=== PATIENT | female | born 1975 | race Caucasian/White ===

== ENCOUNTER → 2022-10-01 | Outpatient (CLI) | payer MEDICAID, SELFPAY ==
[2022-10-01 09:22] LABS: Absolute Neutrophil Count 2.7 X10^3/uL (2.0-7.7); Basophil# 0.03 X10^3/uL; Basophil% 0.7 % (0-1); Eosinophil# 0.21 X10^3/uL; Eosinophils% 4.7 % (0-5); Hematocrit 42.2 % (37-47); Hemoglobin 13.2 g/dL (12.0-15.0); Lymphocyte % 26.7 % (19-41); Mean Corp Hgb Conc 31.3 g/dL (32-36); Mean Corpuscular Hgb 28.3 pg (27.0-32.0); Mean Corpuscular Volume 90.6 fL (81-99); Mean Platelet Vol. 11.3 fl (6.2-12.0); Monocyte# 0.33 X10^3/uL; Monocyte% 7.3 % (0-10); NRBC Flagged by Analyzer 0 % (0-5); Neutrophil # 2.71 X10^3/uL (2.7-7.7); Neutrophil % 60.2 % (47-70); Platelet Count 266 K/mm3 (150-450); RBC Distribution Width CV 12.4 % (11.6-14.6); RBC Distribution Width SD 40.9 fl (35.1-43.9); Red Blood Count 4.66 M/mm3 (4.2-5.4); White Blood Count 4.5 K/mm3 (4.4-11.0)
[2022-10-01 09:56] LABS: BNP,B-Type NATRIURETIC PEPTIDE 208.1 pg/mL (0-100)
[2022-10-01 10:01] LABS: ALB/GLOB Ratio 1.1 RATIO (0.9-2.4); AST(SGOT) 20 U/L (15-37); Alanine Aminotransfer ALT/SGPT 40 U/L (13-56); Albumin, Serum 3.7 g/dL (3.2-5.0); Alkaline Phosphatase 71 U/L (45-117); Anion Gap 6 (5-15); BUN 15 mg/dL (7-18); BUN/Creat Ratio 15.5 RATIO (10-20); Calcium,Total 9.2 mg/dL (8.5-10.1); Chloride 108 mmol/L (98-107); Cholesterol 183 mg/dL (200); Creatinine, Serum 0.97 mg/dL (0.55-1.02); EST Glomerular Filtration Rate 65 mL/min (>60); Est Glom Filt Rate - Afr Amer 79 mL/min (>60); Globulin 3.4 g/dL (2.2-4.2); Glucose 91 mg/dL (74-106); High Density Lipoprotein 53 mg/dL; Potassium 3.9 mmol/L (3.5-5.1); Protein, Total 7.1 g/dL (6.4-8.2); Sodium Level 141 mmol/L (136-145); Thyroid Stim Hormone (TSH) 1.59 uIU/mL (0.358-3.74); Triglycerides 73 mg/dL; Very Low Density Lipoprotein 15 mg/dL (5-40)
== END | disposition home or self-care (01) ==
LOC: LAB 08:43
PROVIDERS: Internal Medicine Cardiovascular Disease; PCP Internal Medicine; Visit Provider Internal Medicine
DX: I48.0 Paroxysmal atrial fibrillation (principal); I42.1 Obstructive hypertrophic cardiomyopathy
CPT/HCPCS: 36415; 80053; 80061; 83880; 84443; 85025

== ENCOUNTER → 2022-10-12 | Outpatient (CLI) | payer MEDICAID, SELFPAY ==
[2022-10-12 08:06] LABS: Anion Gap 6 (5-15); BUN 22 mg/dL (7-18); Calcium,Total 9.5 mg/dL (8.5-10.1); Chloride 105 mmol/L (98-107); EST Glomerular Filtration Rate 63 mL/min (>60); Est Glom Filt Rate - Afr Amer 76 mL/min (>60); Glucose 102 mg/dL (74-106); Potassium 4.4 mmol/L (3.5-5.1); Sodium Level 140 mmol/L (136-145)
== END | disposition home or self-care (01) ==
PROVIDERS: PCP Internal Medicine; Referring Provider Nurse Practitioner Family; Visit Provider Nurse Practitioner Family
DX: I48.0 Paroxysmal atrial fibrillation (principal); I42.1 Obstructive hypertrophic cardiomyopathy; Z86.79 Personal history of other diseases of the circulatory system
CPT/HCPCS: 36415; 80048

== ENCOUNTER → 2022-10-14 | Outpatient (CLI) | payer MEDICAID, SELFPAY | END | disposition home or self-care (01) | LOC: PSN 08:58 | PROVIDERS: PCP Internal Medicine; Visit Provider Nurse Practitioner Family | DX: I48.0 Paroxysmal atrial fibrillation (principal); R00.2 Palpitations | CPT/HCPCS: 93225; 93226 ==

== ENCOUNTER → 2022-10-14 | Outpatient (CLI) | payer MEDICAID, SELFPAY | END | disposition home or self-care (01) | LOC: SL 21:50 | PROVIDERS: PCP Internal Medicine; Visit Provider Internal Medicine | DX: I48.0 Paroxysmal atrial fibrillation (principal); G47.10 Hypersomnia, unspecified | CPT/HCPCS: 95810 ==

== ENCOUNTER → 2023-08-18 | Outpatient (CLI) | payer MEDICAID, SELFPAY ==
[2023-08-18 14:19] LABS: Hematocrit 39.8 % (37-47); Hemoglobin 12.6 g/dL (12.0-15.0); Mean Corp Hgb Conc 31.7 g/dL (32-36); Mean Corpuscular Hgb 28.6 pg (27.0-32.0); Mean Corpuscular Volume 90.2 fL (81-99); Mean Platelet Vol. 10.5 fl (6.2-12.0); Platelet Count 296 K/mm3 (150-450); RBC Distribution Width CV 12.5 % (11.6-14.6); RBC Distribution Width SD 41.5 fl (35.1-43.9); Red Blood Count 4.41 M/mm3 (4.2-5.4); White Blood Count 7.9 K/mm3 (4.4-11.0)
[2023-08-18 15:51] LABS: Anion Gap 5 (5-15); BUN 18 mg/dL (7-18); BUN/Creat Ratio 16.1 RATIO (10-20); Calcium,Total 9.4 mg/dL (8.5-10.1); Chloride 108 mmol/L (98-107); Creatinine, Serum 1.12 mg/dL (0.55-1.02); EST Glomerular Filtration Rate 55 mL/min (>60); Est Glom Filt Rate - Afr Amer 66 mL/min (>60); Glucose 117 mg/dL (74-106); Potassium 3.7 mmol/L (3.5-5.1); Sodium Level 142 mmol/L (136-145)
== END | disposition home or self-care (01) ==
LOC: LAB 14:07
PROVIDERS: PCP Internal Medicine; Referring Provider Nurse Practitioner Family; Visit Provider Nurse Practitioner Family
DX: Z79.01 Long term (current) use of anticoagulants (principal); Z51.81 Encounter for therapeutic drug level monitoring; Z79.899 Other long term (current) drug therapy
CPT/HCPCS: 36415; 80048; 85027

== ENCOUNTER 2023-08-19 20:50 | Emergency (ER) | payer MEDICAID, SELFPAY ==
[2023-08-19 20:52] VITALS: BP 131/81; PULSE 62; RESP 18; TEMP 36.9; O2SAT 99; BMI 38.2
--- NOTE | 2023-08-19 21:09 | CT_ITS ---
STUDY: CT BRAIN WITHOUT CONTRAST REASON FOR EXAM: Female, 47 years old. Pain RADIATION DOSAGE (If Supplied By Facility): CTDIvol = ( 44.99 ) mGy, DLP = ( 796.11 ) mGycm TECHNIQUE: Transaxial CT imaging of the brain was performed without administration of intravenous contrast material. Individualized dose optimization techniques were used for this CT. COMPARISON: No relevant priors. FINDINGS: Normal soft tissue structures. Normal calvarium. Normal size ventricles and extra-axial spaces for the patient''s age. Normal white matter tracts of the cerebral hemispheres. Normal basal ganglia and thalami. Normal brainstem. Normal cerebellum. There is no intracranial hemorrhage. There are no findings of an acute ischemic infarction. Normal visualized paranasal sinuses. CT/Brain/Head without Contrast IMPRESSION: Normal unenhanced CT scan of the brain. Electronically Signed: Fernando Hernández MD at 22:01 EDT ,
--- NOTE | 2023-08-19 21:09 | EX.ED.VIS.HA ---
HPI History of Present Illness Chief Complaint: Headache Narrative Narrative: 47-year-old female past medical history of HOCM and atrial fibrillation, on Xarelto, presents with headache that she has had over the last month. She called her coordinator of placement yesterday, who told her to take ibuprofen which is not relieving her headache. She describes headache in her temples and behind her eyeballs which sometimes migrates. She states she wakes up every day with a headache and goes to sleep with it. It lasts all day every day for the last month. She rates it a 7-1/2 out of 10 currently, or may be a 6. She states that she had blood work performed yesterday to check her potassium, but that was normal. She states that she was sent to the emergency department with concern that since she is on Xarelto and continued headache that she should be evaluated. She denies any paresthesias, no nausea or vomiting, no photophobia or phonophobia. She thought initially that maybe her glasses were off which was causing her headaches. She denies any exacerbating or alleviating factors. [facility] Medical History History of heart disease Hx of cardiac murmur Hx of chronic arthritis Hx of heart failure Hx of migraines ICD (implantable cardioverter-defibrillator) in place Need for [id number] (Tdap) vaccine Obesity Home Medications rivaroxaban 20 mg tablet (Xarelto) 20 mg PO DAILY #90 tabs 02/13/23 [Rx Last Taken Unknown] furosemide 40 mg tablet 40 mg PO DAILY #90 tabs 05/03/23 [Rx Last Taken Unknown] sotalol 80 mg tablet 80 mg PO BID #180 tabs 08/10/23 [Rx Last Taken Unknown] Allergy/AdvReac Type Severity Reaction Status Date / Time oxycodone HCl [From Percocet] AdvReac Upset Verified 08/19/23 20:51 Stomach Family History Sister Hypertrophic cardiomyopathy WPW (Znxcx-Gbkrvnezi-Gyskq syndrome) Heart disease Mother CAD (coronary artery disease) CABG at 60s Atrial fibrillation Diabetes Hypertension Arthritis Heart disease Hyperlipidemia Thyroid disorder Congestive heart failure Father CVA (cerebral vascular accident) Hypertension COPD (chronic obstructive pulmonary disease) Brother Diabetes Grandmother Diabetes Myocardial infarction Grandfather Myocardial infarction Aunt CVA (cerebral vascular accident) Surgical History H/O hernia repair H/O ventricular septal myectomy (~2011) History of implantable cardioverter-defibrillator (ICD) placement Hx of tonsillectomy Social History household members: spouse housing: house current occupational status: employed current occupation: [employer] sexually active: Yes Smoking Status: Never smoker Electronic Cigarette Use: not used alcohol intake: never substance use type: does not use caffeine: No what type of physical activity do you participate in: walking frequency: 3-4 times per week seatbelt use: always do you feel safe at home: Yes ROS ROS ED ROS Narrative Constitutional: No fever, no chills. HEENT: No sore throat. No neck pain. No loss of vision. No rhinorrhea. Cardiovascular: No chest pain. No palpitations. No pedal edema. Respiratory: No cough, no shortness of breath. Abdominal: No abdominal pain. No nausea. No vomiting. Genitourinary: No dysuria. No hematuria. Musculoskeletal: No myalgias. No arthralgias. Neurologic: 1 months along headaches. No dizziness. No lightheadedness. Skin: No rash. No change in color. Psychiatric: No depression. No anxiety. EXAM Physical Exam Narrative Exam Narrative: Afebrile. Vital signs noted. HEENT: Normocephalic. Atraumatic. PERRL, EOMI. Neck soft and supple. No point tenderness or step off. Cardiovascular: Regular rate and rhythm. No murmurs, rubs, or gallops appreciated. Respiratory: No tachypnea. Lungs clear to auscultation bilaterally. Gastrointestinal: Abdomen soft, nontender, with normoactive bowel sounds. No rebound or guarding. Neurological: Awake. Alert. Nonfocal, nonlateralizing. Skin: No rash. Normal color. No pallor. Musculoskeletal: No pedal edema. Full range of motion extremities. Const Vital Signs: 08/19/23 20:52 Temperature 98.5 F Temperature Source Temporal Pulse Rate 62 Respiratory Rate 18 Blood Pressure 131/81 H Blood Pressure Mean 97 Pulse Ox 99 MDM MDM MDM Narrative Medical decision making narrative: I reviewed the patient's prior records. Although she states she does not usually get headaches, one of her problem is listed as history of migraines. She could be having more of an atypical migraine. Additionally, given her long-term anticoagulant use, concern would be for mass or intracranial hemorrhage. However, history and physical does not support this and she has a normal neurological examination that is nonfocal and nonlateralizing. With the suspicion of atypical migraine she was bolused normal saline and administered Compazine and Benadryl. I will check a CBC and a BMP as well to check her electrolytes and to help rule out anemia. I do feel CT imaging of the brain is indicated. I reviewed her laboratory work, she has normal white count of 6.5, hemoglobin normal at 12.1, hematocrit 38.9, platelet count normal at 271. Chloride is slightly elevated at 108 which I think is nonspecific, BUN of 23 with a creatinine of 1.04. Glucose is appropriately elevated at 108 but she has a low anion gap of 4. I have no concern for diabetic ketoacidosis. I reviewed the CT imaging and reviewed it independently/interpreted it and there is no evidence of acute intracranial hemorrhage or mass. I reviewed the radiology report which confirms my independent interpretation. At this point in time, upon repeat examination after Compazine and Benadryl, she states she is minimally improved. I discussed the use of sumatriptan hand with her or dexamethasone to help with her headache, but she declined stating that she did not want all that medicine. She would like to be discharged. She did not want to wait for the rest of her IV fluids. At this point in time, she was told to follow-up with her primary care provider and that she may need follow-up with a neurologist for her daily headache for the last month. I do not feel that she requires transfer or admission at this time. I feel she can be discharged safely home with follow-up. Return instructions were reviewed. Disposition is discharged home in stable condition. History & Record Review Discussion w/independent historian: Patient Additional record(s) reviewed:: Prior ED visit and Prior labs Lab Data Attestation: I reviewed the patient's lab results. Labs: Laboratory Results - last 24 hr 08/19/23 21:27 WBC 6.5 RBC 4.29 Hgb 12.1 Hct 38.9 MCV 90.7 MCH 28.2 MCHC 31.1 L RDW Std Deviation 41.1 RDW Coeff of Shadi 12.5 Plt Count 271 MPV 10.7 Immature Gran % (Auto) 0.200 Neut % (Auto) 56.2 Lymph % (Auto) 31.2 Meagher % (Auto) 8.0 Eos % (Auto) 3.8 Baso % (Auto) 0.6 Absolute Neuts (auto) 3.7 Absolute Lymphs (auto) 2.04 Nucleated RBC % 0 Sodium 142 Potassium 3.6 Chloride 108 H Carbon Dioxide 30.0 Anion Gap 4 L BUN 23 H Creatinine 1.04 H Estim Creat Clear Calc 68.38 Est GFR (MDRD) Af Amer 72 Est GFR (MDRD) Non-Af 60 BUN/Creatinine Ratio 22.1 H Glucose 108 H Calcium 8.6 Radiography Diagnostic Testing: Clinical Impression(s) from Imaging Studies Brain CT 08/19/23 21:09 IMPRESSION: Normal unenhanced CT scan of the brain. Electronically Signed: Fernando Hernández MD at 22:01 EDT , Discharge Plan Triage Chief Complaint: Headache ED Provider: Karthik Gillespie Dx/Rx/DC Orders Clinical Impression: Daily headache, Anticoagulant long-term use Instructions: ED Headache Unspecified Prescriptions: No Action Xarelto 20 mg tablet 20 mg PO DAILY Qty: 90 3RF Rx Instructions: must administer with evening meal furosemide 40 mg tablet 40 mg PO DAILY Qty: 90 3RF sotalol 80 mg tablet 80 mg PO BID Qty: 180 0RF Primary Care Provider: Lashonda Kilgore Referrals: Lashonda Kilgore MD [Primary Care Provider] - As soon as possible Activity Restrictions/Additional Instructions: Follow-up with your primary care provider. You may need referral to neurology for your daily headache for the last month. Disposition Disposition: Home, Self Care
[2023-08-19] MEDS: proCHLORPERazine 10 MG/2 ML Vial IV (21:24)
[2023-08-19] MEDS: DiphenhydrAMINE 50 MG/ML Syringe 25 MG IV (21:24)
[2023-08-19] MEDS: 0.9% Normal Saline (1000mL) 1,000 ML 999 ML IV (21:24)
[2023-08-19 21:38] LABS: Absolute Lymphocyte Count 2.04 X10^3/uL (0.83-4.51); Absolute Neutrophil Count 3.7 X10^3/uL (2.0-7.7); Basophil# 0.04 X10^3/uL; Basophil% 0.6 % (0-1); Eosinophil# 0.25 X10^3/uL; Eosinophils% 3.8 % (0-5); Hematocrit 38.9 % (37-47); Hemoglobin 12.1 g/dL (12.0-15.0); Lymphocyte # 2.04 X10^3/ul (0.83-4.51); Lymphocyte % 31.2 % (19-41); Mean Corp Hgb Conc 31.1 g/dL (32-36); Mean Corpuscular Hgb 28.2 pg (27.0-32.0); Mean Corpuscular Volume 90.7 fL (81-99); Mean Platelet Vol. 10.7 fl (6.2-12.0); Monocyte# 0.52 X10^3/uL; NRBC Flagged by Analyzer 0 % (0-5); Neutrophil # 3.67 X10^3/uL (2.7-7.7); Neutrophil % 56.2 % (47-70); Platelet Count 271 K/mm3 (150-450); RBC Distribution Width CV 12.5 % (11.6-14.6); RBC Distribution Width SD 41.1 fl (35.1-43.9); Red Blood Count 4.29 M/mm3 (4.2-5.4); White Blood Count 6.5 K/mm3 (4.4-11.0)
[2023-08-19 21:46] LABS: Anion Gap 4 (5-15); BUN 23 mg/dL (7-18); BUN/Creat Ratio 22.1 RATIO (10-20); Calcium,Total 8.6 mg/dL (8.5-10.1); Chloride 108 mmol/L (98-107); Creatinine, Serum 1.04 mg/dL (0.55-1.02); EST Glomerular Filtration Rate 60 mL/min (>60); Est Glom Filt Rate - Afr Amer 72 mL/min (>60); Estimated Creatinine Clearance 68.38 ml/min; Glucose 108 mg/dL (74-106); Potassium 3.6 mmol/L (3.5-5.1); Sodium Level 142 mmol/L (136-145)
== END 2023-08-19 22:16 | disposition home or self-care (01) ==
PROVIDERS: Emergency Provider Emergency Medicine; PCP Internal Medicine; Visit Provider Emergency Medicine
DX: R51.9 Headache, unspecified (principal); I50.9 Heart failure, unspecified; I48.91 Unspecified atrial fibrillation; Z79.01 Long term (current) use of anticoagulants; Z79.899 Other long term (current) drug therapy; Z95.810 Presence of automatic (implantable) cardiac defibrillator
CPT/HCPCS: 70450; 80048; 85025; 96361; 96374; 96375; 99282; J7030; A4216

== ENCOUNTER → 2024-01-16 | Outpatient (CLI) | payer OTHER, SELFPAY | END | disposition home or self-care (01) | LOC: LABSPEC 13:32 | PROVIDERS: PCP Internal Medicine; Referring Provider Internal Medicine; Visit Provider Internal Medicine | DX: R68.89 Other general symptoms and signs (principal) | CPT/HCPCS: 87502; 87635 ==

== ENCOUNTER → 2024-05-29 | Outpatient (CLI) | payer BC, SELFPAY ==
--- NOTE | 2024-05-29 12:47 | CDU_ITS ---
Reason For Study: Visual changes Rt. Velocities/BP Lt. Velocities/BP Prox CCA 104.7/22.3 cm/sec. Prox CCA 90/23 cm/sec. Mid CCA 81.5/20.1 cm/sec. Mid CCA 91/20.1 cm/sec. Dist CCA 80.6/23 cm/sec. Dist CCA 68.3/19.2 cm/sec. Prox ICA 83.9/21.2 cm/sec. Prox ICA 62.6/23.9 cm/sec. Mid ICA 75.3/28.6 cm/sec. Mid ICA 68.3/28. cm/sec. Dist ICA 74/29.8 cm/sec. Dist ICA 57/22 cm/sec. Rt. ICA/CCA = 1.03. Lt. ICA/CCA = 0.75. Prox ECA 79.6/11.6 cm/sec. Prox ECA 80.6/8.8 cm/sec. Rt. Vert. 39/9.7 cm/sec. Lt. Vert. 62.6/20.1 cm/sec. Right Extracranial There is intimal thickening but no significant atherosclerotic plaque noted in the right common carotid artery. There is intimal thickening but no significant atherosclerotic plaque noted in the right internal carotid artery. There is intimal thickening but no significant atherosclerotic plaque noted in the right external carotid artery. Antegrade flow is noted in the right vertebral artery. Left Extracranial There is intimal thickening but no significant atherosclerotic plaque noted in the left common carotid artery. There is intimal thickening but no significant atherosclerotic plaque noted in the left internal carotid artery. There is intimal thickening but no significant atherosclerotic plaque noted in the left external carotid artery. Antegrade flow is noted in the left vertebral artery. Procedure Carotid Duplex 75037. This is a Carotid Duplex examination using B-mode, color flow and specral Doppler. Exam performed in department. VL/Carotid Duplex Ultrasound Interpretation Summary Normal right extracranial internal carotid. Normal left extracranial internal carotid. Patent and antegrade vertebrals bilaterally. Ordering Physician: Latosha Esposito Referring Physician: Lashonda Kilgore Performed By: Rachel Adorno RVT
== END | disposition home or self-care (01) ==
LOC: CVS 12:44
PROVIDERS: PCP Internal Medicine; Referring Provider Nurse Practitioner Gerontology; Visit Provider Nurse Practitioner Gerontology
DX: R55 Syncope and collapse (principal); I48.0 Paroxysmal atrial fibrillation; I42.1 Obstructive hypertrophic cardiomyopathy; H53.9 Unspecified visual disturbance
CPT/HCPCS: 93880

== ENCOUNTER → 2024-06-03 | Outpatient (CLI) | payer BC, SELFPAY ==
[2024-06-03 12:43] LABS: Absolute Lymphocyte Count 1.58 X10^3/uL (0.83-4.51); Basophil# 0.05 X10^3/uL; Eosinophil# 0.16 X10^3/uL; Eosinophils% 3.1 % (0-5); Hemoglobin 12.9 g/dL (12.0-15.0); Lymphocyte # 1.58 X10^3/ul (0.83-4.51); Lymphocyte % 30.8 % (19-41); Mean Corp Hgb Conc 32.3 g/dL (32-36); Mean Corpuscular Hgb 29.1 pg (27.0-32.0); Mean Corpuscular Volume 90.1 fL (81-99); Mean Platelet Vol. 11.1 fl (6.2-12.0); Monocyte# 0.32 X10^3/uL; Monocyte% 6.2 % (0-10); NRBC Flagged by Analyzer 0 % (0-5); Neutrophil # 3.01 X10^3/uL (2.7-7.7); Neutrophil % 58.7 % (47-70); Platelet Count 260 K/mm3 (150-450); RBC Distribution Width CV 12.8 % (11.6-14.6); RBC Distribution Width SD 42.1 fl (35.1-43.9); Red Blood Count 4.44 M/mm3 (4.2-5.4); White Blood Count 5.1 K/mm3 (4.4-11.0)
[2024-06-03 13:53] LABS: ALB/GLOB Ratio 1.1 RATIO (0.9-2.4); AST(SGOT) 23 U/L (15-37); Alanine Aminotransfer ALT/SGPT 19 U/L (13-56); Albumin, Serum 3.9 g/dL (3.2-5.0); Alkaline Phosphatase 76 U/L (45-117); Anion Gap 7 (5-15); BUN 16 mg/dL (7-18); BUN/Creat Ratio 18.4 RATIO (10-20); Calcium,Total 9.2 mg/dL (8.5-10.1); Chloride 107 mmol/L (98-107); Creatinine, Serum 0.87 mg/dL (0.55-1.02); EST Glomerular Filtration Rate 73 mL/min (>60); Est Glom Filt Rate - Afr Amer 89 mL/min (>60); Globulin 3.4 g/dL (2.2-4.2); Glucose 84 mg/dL (74-106); Magnesium 2.3 mg/dL (1.6-2.6); Potassium 4.1 mmol/L (3.5-5.1); Protein, Total 7.3 g/dL (6.4-8.2); Sodium Level 139 mmol/L (136-145); T4 Free Direct 1.03 ng/dL (0.76-1.46)
== END | disposition home or self-care (01) ==
PROVIDERS: PCP Internal Medicine; Referring Provider Nurse Practitioner Family; Visit Provider Nurse Practitioner Family
DX: I47.29 Other ventricular tachycardia (principal); I48.0 Paroxysmal atrial fibrillation; I42.1 Obstructive hypertrophic cardiomyopathy; Z95.810 Presence of automatic (implantable) cardiac defibrillator
CPT/HCPCS: 36415; 80053; 83735; 84439; 84443; 85025

== ENCOUNTER 2024-06-12 09:49 | Emergency (ER) | payer BC, SELFPAY ==
[2024-06-12 09:50] VITALS: BP 121/84; PULSE 75; RESP 16; TEMP 36.4; O2SAT 98; BMI 32.5
--- NOTE | 2024-06-12 10:01 | EDS_ITS ---
HPI History of Present Illness Chief Complaint: Syncope [facility] Medical History Need for [id number]-xzytjao-[id number] (Tdap) vaccine Hx of cardiac murmur Hx of heart failure History of heart disease Hx of migraines Hx of chronic arthritis Obesity ICD (implantable cardioverter-defibrillator) in place Home Medications ?Medication ?Instructions ?Recorded ?Last Taken ?Type sotalol 80 mg tablet 80 mg PO BID #180 tabs 08/10/23 Unknown Rx aspirin 81 mg tablet,delayed 81 mg PO DAILY start when Xarelto 01/09/24 Unknown History release (Adult Aspirin Regimen) runs out rivaroxaban 20 mg tablet (Xarelto) 20 mg PO QDAY #90 tabs 02/26/24 Unknown Rx furosemide 40 mg tablet 40 mg PO DAILY #90 tabs 05/06/24 Unknown Rx semaglutide (weight loss) 1 mg/0.5 1 mg (0.5 mL) subcut QWEEK 1 month 05/22/24 Unknown Rx mL subcutaneous pen injector #2.5 mL Allergy/AdvReac Type Severity Reaction Status Date / Time oxycodone HCl (From Percocet) AdvReac Upset Verified 06/12/24 09:51 Stomach Family History Sister Hypertrophic cardiomyopathy WPW (Zlkby-Cvmnbuaqj-Qykvy syndrome) Heart disease Mother CAD (coronary artery disease) CABG at 60s Atrial fibrillation Diabetes Hypertension Arthritis Heart disease Hyperlipidemia Thyroid disorder Congestive heart failure Father CVA (cerebral vascular accident) Hypertension COPD (chronic obstructive pulmonary disease) Brother Diabetes Grandmother Diabetes Myocardial infarction Grandfather Myocardial infarction Aunt CVA (cerebral vascular accident) Surgical History Hx of tonsillectomy H/O hernia repair History of implantable cardioverter-defibrillator (ICD) placement H/O ventricular septal myectomy (~2011) Social History household members: spouse housing: house current occupational status: employed current occupation: [employer] sexually active: Yes Smoking Status: Never smoker Electronic Cigarette Use: not used alcohol intake: never substance use type: does not use caffeine: No what type of physical activity do you participate in: walking frequency: 3-4 times per week seatbelt use: always do you feel safe at home: Yes EXAM Physical Exam Const Vital Signs: 06/12/24 09:50 06/12/24 10:03 06/12/24 10:22 Temperature 97.6 F L Temperature Source Temporal Pulse Rate 75 Respiratory Rate 16 Respiratory Effort Normal Non-Labored Respiratory Pattern Normal Blood Pressure 121/84 H Blood Pressure Mean 96 Pulse Ox 98 Oxygen Delivery Method Room Air Room Air 06/12/24 10:49 06/12/24 12:00 06/12/24 13:00 Temperature Temperature Source Pulse Rate 69 65 65 Respiratory Rate 14 15 14 Respiratory Effort Respiratory Pattern Blood Pressure 103/70 97/64 109/59 L Blood Pressure Mean 81 75 75 Pulse Ox 98 98 100 Oxygen Delivery Method Room Air Room Air 06/12/24 14:00 Temperature Temperature Source Pulse Rate 71 Respiratory Rate 16 Respiratory Effort Respiratory Pattern Blood Pressure 103/61 Blood Pressure Mean 75 Pulse Ox 96 Oxygen Delivery Method Room Air MDM MDM MDM Narrative Medical decision making narrative: HISTORY OF PRESENT ILLNESS: 48-year-old female who presents concern for near syncope. Notes she felt like she was going to pass out prior to arrival. No she was driving. Denies any car accidents or crashes. Notes that she has been having increased dyspnea exertion especially walking up stairs recently. Denies any new leg swelling, chest pain, shortness of breath, palpitations. Notes no shocks by her defibrillator. Denies unilateral leg swelling. Denies any other VTE risk factors. Notes compliance with Xarelto. REVIEW OF SYSTEMS: Pertinent positives: Syncope Pertinent negatives: Chest pain, shortness of breath PHYSICAL EXAM: Nursing triage notes reviewed, Vital signs reviewed Constitutional: please see mdm HENT: MMM Eyes: Pupils equal round and reactive to light, Extraocular muscles intact Neck: No stridor, no JVD, full neck ROM Lungs: Clear to auscultation, No wheezing or rales. No increased work of breathing, no conversational dyspnea, no accessory muscle use, no nasal flaring. No respiratory distress noted Heart: Regular rate and rhythm, No murmurs, No rubs and No gallops, 2+ distal pulses (radial, femoral, posterior tibial) in all extremities Abdomen: Soft, there is no tenderness, rigidity, rebound or guarding, no obvious peritoneal signs, no palpable pulsatile abdominal masses, no auscultated abdominal bruit : No CVAT Extremities: No edema Neuro: No focal neurological deficits, cranial nerves II through XII intact, 5/5 strength in all extremities. Intact sensation to light touch in all extremities, 2+ reflexes bilateral patella tendons. Normal gait. No ataxia. Skin: No rash or lesions noted MEDICAL DECISION MAKING: Chief Complaint: Near syncope External records reviewed: Reviewed prior pacemaker check from April 2024. This interrogation showed 0 episodes of V. tach or V-fib. Prior echocardiogram 2021 shows ejection fraction of 60-65% with diastolic dysfunction. Factors affecting care: Hypertrophic cardiomyopathy, NSVT, status post ICD, atr ial fibrillation (on Xarelto). Social determinants of health: Denies drug use and cocaine or methamphetamine History obtained from others: Consults: Cardiology MDM Narrative: Patient was initially hemodynamically stable, afebrile nontoxic-appearing. Exam without focal cardiopulmonary abnormalities. No rales, no lower extreme edema, no stigmata of VTE I considered the following differential diagnosis: ACS, arrhythmia, anemia, CHF, PE, electrolyte disturbance, dehydration I obtained a broad lab and imaging workup to further elucidate the etiology the patient's complaint. ALL IMAGES (IF OBTAINED) HAVE BEEN PERSONALLY REVIEWED AND INTERPRETED BY MYSELF. EKG with normal sinus rhythm, normal axis, first-degree AV block CT interval 200, prolonged QTc at 534, left bundle branch block, no STEMI. Similar morphology to EKG from 2022 CBC without leukocytosis, severe anemia, no thrombocytopenia. D-dimer negative this makes VTE less likely I have personally reviewed the patient's chest x-ray. Chest x-ray is unremarkable for pulmonary edema, pneumothorax, pneumonia or focal cardiopulmonary abnormality. BNP borderline elevated this consistent with increased ventricular stretch but is not completely consistent with heart failure given lack of lower extreme edema, hypoxia, pulmonary edema, dyspnea BMP without evidence of significant electrolyte abnormalities, no anion gap, no acute kidney injury. High-sensitivity troponin is negative, no evidence of myocardial ischemia CBC without leukocytosis, severe anemia, no thrombocytopenia. Pacemaker interrogation showed no events such as V-fib or V. tach Discussed case with hospitalist on-call Dr. Forde who recommended getting a stat echocardiogram in the ED to assure no signs of outflow tract obstruction. If there is no significant LVOT he is okay with her being discharged with close follow-up with her capital project engineer. Echo showed no evidence of significant LVOT gradient. Patient is appropriate discharge home with close PCP and cardiology follow-up The patient and/or family, caregivers express understanding. The patient and/or family, caregivers agrees with the plan. Shared decision making: I will have a discussion with the patient and or visitors regarding risk/benefits of further testing or admission. They will be made aware of of the risk/benefits inherent in this decision they will be given the opportunity to voice understanding. Total critical care time today provided was at least 0 minutes. This excludes separately billable procedures. Critical care time (if documented) is secondary to the patient having high probability of clinically significant/life threatening deterioration in the patient's condition which required my urgent intervention. Impression: 1. Syncope 2. History of HOCM Dispo: Discharge home This note was generated with [employer] dictation software. It may contain incorrect words, spelling, and punctuation that were not noted in review of the chart prior to signing. Lab Data Labs: Laboratory Results - last 24 hr 06/12/24 06/12/24 09:55 12:00 WBC 6.8 RBC 4.50 Hgb 12.9 Hct 40.2 MCV 89.3 MCH 28.7 MCHC 32.1 RDW Std Deviation 41.9 RDW Coeff of Shadi 12.9 Plt Count 271 MPV 11.3 Immature Gran % (Auto) 0.300 Neut % (Auto) 64.6 Lymph % (Auto) 24.8 [place] % (Auto) 7.2 Eos % (Auto) 2.2 Baso % (Auto) 0.9 Absolute Neuts (auto) 4.4 Absolute Lymphs (auto) 1.68 Nucleated RBC % 0 D-Dimer Quant (PE/DVT) < 0.27 L Sodium 141 Potassium 3.6 Chloride 109 H Carbon Dioxide 27.0 Anion Gap 5 BUN 17 Creatinine 0.98 Estim Creat Clear Calc 86.34 Est GFR (MDRD) Af Amer 78 Est GFR (MDRD) Non-Af 64 BUN/Creatinine Ratio 17.4 Glucose 87 Calcium 9.1 Troponin I High Sens 20 18 B-Natriuretic Peptide 115.9 H Radiography Diagnostic Testing: Clinical Impression(s) from Imaging Studies Chest X-Ray 06/12/24 10:11 IMPRESSION: No acute abnormality is present. Electronically Signed: Jimenez Carrillo MD at 10:29 EDT , Echocardiogram 06/12/24 12:23 Interpretation Summary Moderate asymmetric septal hypertrophy with anterior septal hypokinesis. Overall left ventricular systolic ejection fraction estimated at 70%. No significant LVOT gradient. The left atrium is mildly enlarged. Mild (1+) mitral valve insufficiency. Mild tricuspid valve insufficiency. Ordering Physician: Checo Ruano Referring Physician: Lashonda Kilgore Performed By: Yoselyn Briceño, TARI, RVT Discharge Plan Triage Chief Complaint: Syncope ED Provider: Checo Ruano Dx/Rx/DC Orders Clinical Impression: Hypertrophic obstructive cardiomyopathy (HOCM), Near syncope Instructions: Hypertrophic Cardiomyopathy Prescriptions: No Action sotalol 80 mg tablet 80 mg PO BID Qty: 180 0RF aspirin [Adult Aspirin Regimen] 81 mg tablet,delayed release (DR/EC) 81 mg PO DAILY Xarelto 20 mg tablet 20 mg PO QDAY Qty: 90 3RF furosemide 40 mg tablet 40 mg PO DAILY Qty: 90 3RF semaglutide (weight loss) 1 mg/0.5 mL pen injector 1 mg subcut QWEEK 30 Days Qty: 2.5 0RF Primary Care Provider: Lashonda Kilgore Referrals: Rikki Raya MD [Med Staff - Active Staff] - Activity Restrictions/Additional Instructions: Thank you for trusting us with your care today! Please take Tylenol (2 pills, 650 mg), ibuprofen (2 pills, 400 mg) every 6 hours as needed for pain and fever control. Please return to the emergency department if your symptoms change or worsen. Please follow with your primary care physician for further outpatient evaluation and management. Print Language: Czech Disposition Disposition: Home, Self Care
--- NOTE | 2024-06-12 10:03 | EKG12_ITS ---
Test Reason : SYNCOPE Blood Pressure : / mmHG Vent. Rate : 067 BPM Atrial Rate : 067 BPM P-R Int : 200 ms QRS Dur : 156 ms QT Int : 506 ms P-R-T Axes : 053 012 144 degrees QTc Int : 534 ms Normal sinus rhythm Left bundle branch block Abnormal ECG Confirmed by Anthony Forde ([id number]), photography editor KEMI RAYMOND ([id number]) on 06/13/2024 2:03:53 PM Referred By: Confirmed By:Anthony Forde
--- NOTE | 2024-06-12 10:11 | RAD_ITS ---
STUDY: X-RAY CHEST REASON FOR EXAM: Female, 48 years old. Chest pain. TECHNIQUE: Single AP portable view of the chest. COMPARISON: Comparison is made with prior study September 16, 2014. FINDINGS: EKG electrodes are seen. The lungs are clear and expanded. There is no demonstrated pleural abnormality. Sternal cerclage wires are present from a prior sternotomy. A left-sided ICD is seen. Normal mediastinum and aditya. Normal visualized pulmonary arteries. Normal visualized aortic arch and descending thoracic aorta. Normal visualized thoracic spine. Normal visualized ribs, clavicles, and shoulders. There is no demonstrated abnormality of the visualized soft tissue structures of the upper abdomen. RAD/Chest 1 View (Portable) IMPRESSION: No acute abnormality is present. Electronically Signed: Jimenez Carrillo MD at 10:29 EDT ,
[2024-06-12 10:21] LABS: Absolute Lymphocyte Count 1.68 X10^3/uL (0.83-4.51); Absolute Neutrophil Count 4.4 X10^3/uL (2.0-7.7); Basophil# 0.06 X10^3/uL; Basophil% 0.9 % (0-1); Eosinophil# 0.15 X10^3/uL; Eosinophils% 2.2 % (0-5); Hematocrit 40.2 % (37-47); Hemoglobin 12.9 g/dL (12.0-15.0); Lymphocyte # 1.68 X10^3/ul (0.83-4.51); Lymphocyte % 24.8 % (19-41); Mean Corp Hgb Conc 32.1 g/dL (32-36); Mean Corpuscular Hgb 28.7 pg (27.0-32.0); Mean Corpuscular Volume 89.3 fL (81-99); Mean Platelet Vol. 11.3 fl (6.2-12.0); Monocyte# 0.49 X10^3/uL; Monocyte% 7.2 % (0-10); NRBC Flagged by Analyzer 0 % (0-5); Neutrophil # 4.37 X10^3/uL (2.7-7.7); Neutrophil % 64.6 % (47-70); Platelet Count 271 K/mm3 (150-450); RBC Distribution Width CV 12.9 % (11.6-14.6); RBC Distribution Width SD 41.9 fl (35.1-43.9); White Blood Count 6.8 K/mm3 (4.4-11.0)
[2024-06-12 10:45] LABS: Anion Gap 5 (5-15); BUN 17 mg/dL (7-18); BUN/Creat Ratio 17.4 RATIO (10-20); Calcium,Total 9.1 mg/dL (8.5-10.1); Chloride 109 mmol/L (98-107); Creatinine, Serum 0.98 mg/dL (0.55-1.02); EST Glomerular Filtration Rate 64 mL/min (>60); Est Glom Filt Rate - Afr Amer 78 mL/min (>60); Estimated Creatinine Clearance 86.34 ml/min; Glucose 87 mg/dL (74-106); Potassium 3.6 mmol/L (3.5-5.1); Sodium Level 141 mmol/L (136-145); Troponin-I HS (w/2H Reflex) 20 pg/mL (3.0-54.0)
[2024-06-12 10:46] LABS: BNP,B-Type NATRIURETIC PEPTIDE 115.9 pg/mL (0-100)
[2024-06-12 10:49] VITALS: BP 103/70; PULSE 69; RESP 14; O2SAT 98
[2024-06-12 11:15] LABS: D-Dimer Quantitative (DVT/PE) < 0.27 FEU/ug/m (0.27-0.49)
[2024-06-12 12:00] VITALS: BP 97/64; PULSE 65; RESP 15; O2SAT 98
[2024-06-12 12:14] LABS: Reflex Troponin-HS? (from REC) Y
--- NOTE | 2024-06-12 12:23 | ECHOD_ITS ---
Reason For Study: Arrhythmia Procedure This was a 2D Doppler, Color Flow transthoracic echocardiogram. Exam performed portable in ED. Left Ventricle Normal left ventricular size. Moderate asymmetric septal hypertrophy with anterior septal hypokinesis. LVOT mean PG 5 mmHg. Overall left ventricular systolic ejection fraction estimated at 70%. Right Ventricle Normal right ventricle. ICD or pacer leads identified within the right ventricle. Atria The left atrium is mildly enlarged. Normal right atrium. ICD or pacer leads identified within the right atrium. Mitral Valve Mild (1+) mitral valve insufficiency. Tricuspid Valve Normal pulmonary artery pressure. Mild tricuspid valve insufficiency. Aortic Valve Trisinus/trileaflet aortic valve. Pulmonic Valve The pulmonic valve is not well visualized. Great Vessels Normal sized aortic root. Pericardium/Pleural Trivial pericardial effusion. MMode/2D Measurements & Calculations LVIDd: 4.5 cm IVSd: 1.7 cm Ao root diam: 3.3 cm RVDd: 4.0 cm LVPWd: 0.93 cm LAV(MOD-bp): 57.1 ml LVAd ap4: 26.7 cm2 SV(MOD-sp4): 53.0 ml LAV(MOD-bp) Indexed: 26.5 ml/m2 LVLd ap4: 8.0 cm LAV(MOD-sp2): 45.7 ml EDV(MOD-sp4): 72.2 ml LAV(MOD-sp4): 66.9 ml EDV(sp4-el): 75.5 ml LVAs ap4: 11.7 cm2 LVLs ap4: 6.2 cm ESV(MOD-sp4): 19.3 ml ESV(sp4-el): 18.7 ml EF(MOD-sp4): 73.3 % EF(sp4-el): 75.2 % SV(sp4-el): 56.8 ml LA A4 area: 21.7 cm2 LA dimension(2D): 4.2 cm RA A4 area: 16.5 cm2 Time Measurements MV dec time: 0.19 sec Doppler Measurements & Calculations MV E max raoul: 75.0 cm/sec MV dec slope: 389.1 cm/sec2 Ao V2 max: 131.7 cm/sec MV A max raoul: 52.5 cm/sec Ao max P.0 mmHg MV E/A: 1.4 Ao V2 mean: 90.6 cm/sec Ao mean P.8 mmHg Ao V2 VTI: 32.1 cm AV (velocity ratio): 1.0 LV V1 max: 132.2 cm/sec PA V2 max: 94.8 cm/sec TR max raoul: 217.8 cm/sec LV V1 max P.0 mmHg PA max PG (full): 0.84 mmHg TR max P.0 mmHg LV V1 mean P.4 mmHg LV V1 mean: 101.2 cm/sec LV V1 VTI: 32.7 cm ECHO/Echo Complete Interpretation Summary Moderate asymmetric septal hypertrophy with anterior septal hypokinesis. Overal l left ventricular systolic ejection fraction estimated at 70%. No significant LVOT gradient. The left atrium is mildly enlarged. Mild (1+) mitral valve insufficiency. Mild tricuspid valve insufficiency. Ordering Physician: Checo Ruano Referring Physician: Lashonda Kilgore Performed By: Yoselyn Briceño, TARI, RVT
[2024-06-12 12:37] LABS: Troponin-I HS 18 pg/mL (3.0-54.0)
[2024-06-12 13:00] VITALS: BP 109/59; PULSE 65; RESP 14; O2SAT 100
[2024-06-12 14:00] VITALS: BP 103/61; PULSE 71; RESP 16; O2SAT 96
[2024-06-12 15:25] VITALS: BP 103/76; PULSE 75; RESP 16; TEMP 36.4; O2SAT 99
== END 2024-06-12 15:26 | disposition home or self-care (01) ==
PROVIDERS: Emergency Provider Emergency Medicine; PCP Internal Medicine; Visit Provider Emergency Medicine
DX: R55 Syncope and collapse (principal); I50.9 Heart failure, unspecified; I48.91 Unspecified atrial fibrillation; I42.1 Obstructive hypertrophic cardiomyopathy; Z79.01 Long term (current) use of anticoagulants; Z95.810 Presence of automatic (implantable) cardiac defibrillator
CPT/HCPCS: 71045; 80048; 83880; 84484; 85025; 85379; 93005; 93306; 99284; A4216

== ENCOUNTER → 2024-11-19 | Outpatient (CLI) | payer BC, SELFPAY | END | disposition home or self-care (01) | LOC: BIMLAB 10:08 → LABSPEC 10:09 | PROVIDERS: PCP Internal Medicine; Visit Provider Physician Assistant | DX: J06.9 Acute upper respiratory infection, unspecified (principal) | CPT/HCPCS: 87631 ==

== ENCOUNTER → 2025-05-20 | Outpatient (CLI) | payer BC, SELFPAY ==
[2025-05-20 17:07] LABS: Hematocrit 38.8 % (37-47); Hemoglobin 12.7 g/dL (12.0-15.0); Immature Granulocytes Count 0.010 X10^3/uL (0.0-0.0); Mean Corp Hgb Conc 32.7 g/dL (32-36); Mean Corpuscular Volume 87.8 fL (81-99); Mean Platelet Vol. 10.6 fl (6.2-12.0); NRBC Flagged by Analyzer 0 % (0-5); Platelet Count 252 K/mm3 (150-450); RBC Distribution Width CV 12.4 % (11.6-14.6); RBC Distribution Width SD 39.8 fl (35.1-43.9); Red Blood Count 4.42 M/mm3 (4.2-5.4); White Blood Count 6.9 K/mm3 (4.4-11.0)
[2025-05-20 18:07] LABS: Anion Gap 10 (5-15); BUN 20 mg/dL (4-19); BUN/Creat Ratio 19.0 RATIO (10-20); Calcium,Total 9.5 mg/dL (7.6-11.0); Carbon Dioxide 24.7 mmol/L (21.0-32.0); Chloride 104 mmol/L (98-108); Glucose 84 mg/dL (70-99); Magnesium 2.3 mg/dL (1.5-2.2); Potassium 4.6 mmol/L (3.3-5.1)
== END | disposition home or self-care (01) ==
LOC: LAB 16:56
PROVIDERS: PCP Internal Medicine; Referring Provider Physician Assistant Medical; Visit Provider Physician Assistant Medical
DX: R00.2 Palpitations (principal); I47.29 Other ventricular tachycardia; I42.2 Other hypertrophic cardiomyopathy; I42.1 Obstructive hypertrophic cardiomyopathy; Z95.810 Presence of automatic (implantable) cardiac defibrillator
CPT/HCPCS: 36415; 80048; 83735; 84443; 85025

== ENCOUNTER → 2025-09-04 | Outpatient (CLI) | payer BC, SELFPAY ==
--- NOTE | 2025-09-04 15:59 | CT_ITS ---
PROCEDURE: CTA HEAD AND NECK W/ CONTRAST 09/04/[address] head REASON FOR EXAM: TRANSIENT VISION CHANGES TECHNIQUE: Procedure Code: [id number].HDNCK Modality: CT Procedure: CTA HEAD AND NECK W/ CONTRAST Noncontrast CT head. Multiplanar Sagittal and Coronal images were obtained. CONTRAST: Isovue 370 VOLUME: 100 mL One or more dose reduction techniques were used (e.g., Automated exposure control, adjustment of the mA and/or kV according to patient size, use of iterative reconstruction technique). RADIATION DOSE SUMMARY: CTDlvol: 17.35 mGy DLP: 1480.64 mGycm COMPARISON: None. FINDINGS: CT head: No acute territorial infarction. No acute intracranial hemorrhage. No mass- effect or midline shift. Diffuse white matter hypodensities which are nonspecific but likely due to chronic small-vessel ischemia. Parenchymal volume loss consistent with brain atrophy. No ventriculomegaly. The orbits are unremarkable. The craniocervical junction is unremarkable. No acute bony abnormalities. CTA head and neck: Aortic Arch: Normal size and branching pattern. No significant atherosclerotic plaque. Brachiocephalic and Subclavians: Unremarkable RIGHT Carotid: Right CCA: Unremarkable. Right ICA: Unremarkable. Right ECA: Unremarkable. LEFT Carotid: Left CCA: Unremarkable. Left ICA: Unremarkable. Left ECA: Unremarkable. Vertebrals: Codominant. Arise from the subclavians. Both vertebrals form the basilar. RIGHT Vertebral: Unremarkable. LEFT Vertebral: Unremarkable. Anatomy: [place] anatomy is normal. Aneurysm or avm: No intracranial aneurysms or large vascular malformations are identified. Anterior cerebral arteries: Unremarkable: Middle cerebral arteries: Unremarkable. Basilar artery: Unremarkable. Posterior cerebral arteries: Unremarkable. Other major branches of the posterior circulation: Unremarkable. Major venous structures: Unremarkable. Other findings: Neck: No lymphadenopathy. Lungs: Lung apices are clear. Bones: Bones are unremarkable. CT/CTA Head AND Neck W/ Contrast IMPRESSION: No acute intracranial abnormalities. No significant stenosis in the head and neck. No aneurysm. Reading Location: [facility]
== END | disposition home or self-care (01) ==
LOC: CT 15:58
PROVIDERS: PCP Internal Medicine; Referring Provider Internal Medicine; Visit Provider Internal Medicine
DX: H53.129 Transient visual loss, unspecified eye (principal)
CPT/HCPCS: 70496; 70498; Q9967